=== PATIENT | male | born 1945 | race African-American/Black ===

== ENCOUNTER 2023-04-30 12:21 | Outpatient (CLI) | payer MEDICARE, SELFPAY ==
--- NOTE | ~2023-04-30 | PE_ITS ---
EXAMINATION: PET_PETPSMAST_PT DATE: 04/30/2023 15:06 INDICATION: Malignant neoplasm of prostate. TECHNIQUE: 9.396 mCi of piflufolastat F-18 was administered intravenously. Low dose computed tomograp hy (CT) images were acquired from the base of the brain to the proximal thighs for attenuation correc tion and anatomic localization. Automated exposure control was employed. Dose-length product (DLP) wa s 747 mGy-cm. Positron emission tomography (PET) images were acquired in the same distribution. COMPARISON: None FINDINGS: Head/neck: There are no pathologically enlarged lymph nodes. Chest: The lungs demonstrate mild atelectasis. No pleural effusion. The heart size is normal. There a re coronary artery calcifications. There is a left chest pacer with leads in right atrium, right vent ricle, and coronary sinus. Abdomen/pelvis/proximal thighs: The liver, gallbladder, spleen, pancreas, and adrenal glands are norm al. There are cysts in the kidneys measuring up to 1.9 cm on the right. There is calcified atheroscle rosis of the aorta and many of the other arteries. There is diverticulosis of the colon without evide nce of diverticulitis. The appendix is normal. The prostate is severely enlarged. There is a large di stribution of increased activity in the prostate with maximum SUV of 22.2. There is an 11 x 11 mm rig ht obturator node with maximum SUV of 2.8. There is a normal-sized right external iliac node with max imum SUV of 5.5. There is no free intraperitoneal fluid. There is no osseous malignancy. IMPRESSION: 1. Severely enlarged prostate with increased activity, consistent with primary malignancy. 2. Normal-sized right external iliac node with increased activity, consistent with metastatic disease . A mildly enlarged right obturator node with activity similar to background activity is suspicious f or metastatic disease. Reviewed, dictated and finalized at location E. [employer] IMPRESSION: 1. Severely enlarged prostate with increased activity, consistent with primary malignancy. 2. Normal-sized right external iliac node with increased activity, consistent w ith metastatic disease. A mildly enlarged right obturator node with activity si milar to background activity is suspicious for metastatic disease.
== END 2023-04-30 12:22 | disposition home or self-care (01) ==
PROVIDERS: PCP Internal Medicine; Visit Provider Urology
DX: C61 Malignant neoplasm of prostate (principal); R59.0 Localized enlarged lymph nodes
CPT/HCPCS: 78815; A9595